=== PATIENT | female | born 1960 | race African-American/Black ===

== ENCOUNTER 2017-09-15 14:11 | Emergency (ER) | payer OTHER ==
[~2017-09-15] VITALS: Ht 162.6 cm; Wt 102.1 kg
[2017-09-15 14:16] VITALS: BP 108/57
--- NOTE | 2017-09-15 14:27 | NUR ---
Patient taken to bed 03 via wheelchair per RN.
[2017-09-15] MEDS ORDERED: HYDROcodone/APAP 5/325 MG 1 TAB TAB PO ONE (14:35)
--- NOTE | 2017-09-15 14:40 | NUR ---
Received ALOX4 with pt stating that she as gout and is now today in pain upon movement pt arrived in w/c.
--- NOTE | 2017-09-15 14:41 | NUR ---
Patient taken to XRAY via wheelchair per tech.
--- NOTE | 2017-09-15 14:53 | NUR ---
Off the unit in stable condition to radiology.
--- NOTE | 2017-09-15 15:24 | NUR ---
Returned to unit in stable conditon and medication given tolerated well no adverse reaction at this time.
[2017-09-15 16:02] VITALS: BP 144/94
--- NOTE | 2017-09-15 16:03 | NUR ---
Patient discharged with v/s stable. Written and verbal after care instructions given and explained. Patient alert, oriented and verbalized understanding of instructions. Wheel Chair Assisted with to home. All questions addressed prior to discharge. ID band removed. Patient advised to follow up with PMD. Rx of norco, colchicine given. Patient educated on indication of medication including possible reaction and side effects. Opportunity to ask questions provided and answered.
== END 2017-09-15 16:03 | disposition home or self-care (01) ==
LOC: MED 14:11
DX: M79.605 Pain in left leg (principal); E11.9 Type 2 diabetes mellitus without complications; I10 Essential (primary) hypertension; M19.90 Unspecified osteoarthritis, unspecified site; W18.30XA Fall on same level, unspecified, initial encounter; Y93.89 Activity, other specified; Y92.89 Other specified places as the place of occurrence of the external cause; Y99.8 Other external cause status
CPT/HCPCS: 73562; 73590; 73610; 73630; 99284

== ENCOUNTER 2018-01-31 11:03 | Emergency (ER) | payer OTHER ==
[~2018-01-31] VITALS: Ht 160 cm; Wt 90.3 kg
[2018-01-31 11:03] VITALS: BP 146/79
--- NOTE | 2018-01-31 11:07 | NUR ---
PT AMBULATED TO ER BED 04
--- NOTE | 2018-01-31 11:15 | NUR ---
PT. CAME INTO ED W/ C/O COUGH X 1 WEEK. PT. STATES " IN NOVEMBER I WAS DIAGNOSED WITH PNEUMONIA, AND THE COUGH STARTED A WEEK AGO , I HAVE NOT HAD FEVERS, BUT I AM COUGHING UP WHITE / GREEN[employer] PHLEGM SINCE YESTERDAY AND JUST WANTED TO COME IN TO MAKE SURE EVERYTHING WAS OKAY". 9/10 PAIN IN THE THROAT THAT IS BURNING THAT RADIATES TO HER HEAD. DENIES SOB, DENIES CHEST PAIN, RR EVEN AND UNLABORED, LS: WHEEZES THROUGHT ANTERIOR AND POSTERIOR. ER. MD NOTIFIED. WILL CONTINUE TO MONITOR.
[2018-01-31] MEDS ORDERED: ALBUTEROL SULFATE/IPRATROPIU 3 ML SOL IH ONE (12:00)
[2018-01-31] MEDS ORDERED: CLINDAMYCIN 600 MG/4 ML VIAL IM ONE (12:00)
[2018-01-31] MEDS ORDERED: DEXAMETHASONE 10 MG/ML VIAL IM ONE (12:00)
--- NOTE | 2018-01-31 12:30 | NUR ---
PT. TAKEN TO XRAY VIA WHEELCHAIR BY COSMETIC ASSEMBLER
--- NOTE | 2018-01-31 12:33 | NUR ---
PATIENT OUT OF ROOM IN RADIOLOGY ASSISTANT SUPERINTENDENT FOR CURRICULUM TO ATTEMPT HHN THEEAPY AT A LATER TIME
--- NOTE | 2018-01-31 12:36 | NUR ---
ADMITTING DX: SOB HX: COPD LOC AWAKE AND ALERT RESPONSIVE TO BENCH TOOL MAKER VERBAL COMMANDS SITTING UP ON GURNEY SKIN TONE PINK EDUCATION PROVIDED TO PATIENT WITH ACKNOWLEDGEMENT ON HHN THERAPY AND RESPIRATORY DRUG HHN THERAPY GIVEN ASO ORDERED ENCOURAGED PATIENT FOR INTERMITTENT DEEP BREATHING DURING THERAPY STRONG NPC TOLERATED THERAPY WELL WITHOUT ADVERSE REACTIONS
[2018-01-31 13:37] VITALS: BP 133/71
== END 2018-01-31 13:36 | disposition home or self-care (01) ==
LOC: MED 11:03
DX: J44.9 Chronic obstructive pulmonary disease, unspecified (principal); I11.0 Hypertensive heart disease with heart failure; I50.9 Heart failure, unspecified; E11.9 Type 2 diabetes mellitus without complications; M19.90 Unspecified osteoarthritis, unspecified site; F17.210 Nicotine dependence, cigarettes, uncomplicated; Z87.01 Personal history of pneumonia (recurrent); Z88.0 Allergy status to penicillin
CPT/HCPCS: 71046; 94640; 96372; 99284; J1100; J3490; J7620